=== PATIENT | male | born 1975 | race Hispanic/Latino ===

== ENCOUNTER 2017-07-31 11:19 | Emergency (ER) | payer OTHER ==
[~2017-07-31] VITALS: Ht 167.6 cm; Wt 118.4 kg
[2017-07-31] MEDS ORDERED: PREDNISONE20 MG PO (14:05)
[2017-07-31] MEDS ORDERED: NAPROXEN500 MG PO (14:05)
[2017-07-31] MEDS ORDERED: FLEXERIL10 MG PO (14:05)
[2017-07-31] MEDS ORDERED: VENTOLIN HFA18 GM IH (14:43)
[2017-07-31 14:49] VITALS: BP 120/86
== END 2017-07-31 14:50 | disposition home or self-care (01) ==
LOC: EME 11:19
DX: M54.16 Radiculopathy, lumbar region (principal); J06.9 Acute upper respiratory infection, unspecified; F12.90 Cannabis use, unspecified, uncomplicated
CPT/HCPCS: 71046; 99281; 99284; J1885; J7512